=== PATIENT | female | born 1970 | race Caucasian/White ===

== ENCOUNTER 2016-06-26 19:41 | Emergency (ER) | payer MEDICAID ==
--- NOTE | 2016-06-26 19:52 | ER Document Report ---
ED Medical Screen (RME) - General Stated Complaint: CHEST PAIN Notes: 45 yo female c/o left sided chest pain x 45 min. radiation into back, numbness to left arm. pain is reproducable, aggrevated with movement. no nausea. no shortness of breath.
[2016-06-26 20:43] LABS: ABSOLUTE BASOPHILS # (AUTO) 0.1 10^3/uL (0.0-0.2); ABSOLUTE EOSINOPHILS # (AUTO) 0.5 10^3/uL (0.0-0.6); ABSOLUTE LYMPHOCYTES (AUTO) 3.5 10^3/uL (0.5-4.7); ABSOLUTE MONOCYTES (AUTO) 0.7 10^3/uL (0.1-1.4); ABSOLUTE NEUT (AUTO) 7.8 10^3/uL (1.7-8.2); BASOPHILS % (AUTO) 1.1 % (0-2); EOSINOPHILS % (AUTO) 3.8 % (0-6); HEMATOCRIT 43.5 % (36.0-47.0); HEMOGLOBIN 14.6 g/dL (12.0-15.5); HGB HCT DIFFERENCE 0.3; LYMPHOCYTES % (AUTO) 27.5 % (13-45); MEAN CORPUSCULAR HEMOGLOBIN 27.8 pg (27.0-33.4); MEAN CORPUSCULAR HGB CONC 33.5 g/dL (32.0-36.0); MEAN CORPUSCULAR VOLUME 83 fl (80-97); MONOCYTES % (AUTO) 5.3 % (3-13); RED BLOOD COUNT 5.24 10^6/uL (3.72-5.28); RED CELL DISTRIBUTION WIDTH 15.2 % (11.5-14.0); SEGMENTED NEUTROPHILS % (AUTO) 62.3 % (42-78); WHITE BLOOD COUNT 12.6 10^3/uL (4.0-10.5)
[2016-06-26 21:02] LABS: ALANINE AMINOTRANSFERASE 36 U/L (9-52); ALBUMIN 4.1 g/dL (3.5-5.0); ALKALINE PHOSPHATASE 89 U/L (38-126); ANION GAP 11 (5-19); ASPARTATE AMINO TRANSFERASE 23 U/L (14-36); BILIRUBIN,TOTAL 0.6 mg/dL (0.2-1.3); BLOOD UREA NITROGEN 16 mg/dL (7-20); CALCIUM 9.7 mg/dL (8.4-10.2); CARBON DIOXIDE 28 mmol/L (22-30); CHLORIDE 103 mmol/L (98-107); CREATINE KINASE 90 U/L (30-135); CREATININE RESULT 0.73 mg/dL (0.52-1.25); GLUCOSE 133 mg/dL (75-110); POTASSIUM 4.2 mmol/L (3.6-5.0); SODIUM 141.6 mmol/L (137-145)
[2016-06-26 21:17] LABS: CREATINE KINASE MB 0.58 ng/mL (<4.55); TROPONIN I < 0.012 ng/mL
--- NOTE | 2016-06-27 02:51 | ER Document Report ---
ED General - General Chief Complaint: Chest Pain Stated Complaint: CHEST PAIN Notes: Patient is a 45-year-old female with past medical history of chronic chest wall pain which she describes as a chronic chest arthritis who presents with the same pain. States that normally the pain does resolve spontaneously after 5 minutes but has been persistent for the last several hours which prompted her to come to the emergency department. Described as a dull, constant, throbbing pain that is worsened by applying pressure to the chest wall. Nothing improves the pain. States she normal takes gabapentin for this pain and has not had a for the past 1 month she recently moving to the area and not yet having a primary care physician. She denies any associated nausea, vomiting, diaphoresis or shortness of breath. Denies any history of DVT or pulmonary embolus. Does not use estrogen. States there is nothing new or different about this chest pain today relative past 5 years with the exception that has not resolve spontaneously. TRAVEL OUTSIDE OF THE [place] IN LAST 30 DAYS: No - Related Data Allergies/Adverse Reactions: morphine Allergy (Verified 06/26/16 19:54) Penicillins Allergy (Verified 06/26/16 19:54) Past Medical History - General Information source: Patient - Social History Smoking Status: Current Every Day Smoker Chew tobacco use (# tins/day): No Frequency of alcohol use: None Drug Abuse: None Lives with: Spouse/Significant other Family History: Reviewed & Not Pertinent Patient has suicidal ideation: No Patient has homicidal ideation: No Renal/ Medical History: Denies: Hx Peritoneal Dialysis - Immunizations Hx Diphtheria, Pertussis, Tetanus Vaccination: Yes Review of Systems - Review of Systems Notes: Constitutional: Negative for fever. HENT: Negative for sore throat. Eyes: Negative for visual changes. Cardiovascular: Positive for chest pain. Respiratory: Negative for shortness of breath. Gastrointestinal: Negative for abdominal pain, vomiting or diarrhea. Genitourinary: Negative for dysuria. Musculoskeletal: Negative for back pain. Skin: Negative for rash. Neurological: Negative for headaches, weakness or numbness. 10 point ROS negative except as marked above and in HPI. Physical Exam - Vital signs Vitals: Temp Pulse Resp BP Pulse Ox 98.0 F 85 16 130/70 H 99 06/26/16 19:49 06/26/16 19:49 06/26/16 19:49 06/26/16 19:49 06/26/16 19:49 Interpretation: Normal Notes: PHYSICAL EXAMINATION: GENERAL: Well-appearing, well-nourished and in no acute distress. HEAD: Atraumatic, normocephalic. EYES: Pupils equal round and reactive to light, extraocular movements intact, sclera anicteric, conjunctiva are normal. ENT: nares patent, oropharynx clear without exudates. Moist mucous membranes. NECK: Normal range of motion, supple without lymphadenopathy LUNGS: Breath sounds clear to auscultation bilaterally and equal. No wheezes rales or rhonchi. HEART: Regular rate and rhythm without murmurs Chest wall: Pain reproduced on palpation of the left central chest wall ABDOMEN: Soft, nontender, normoactive bowel sounds. No guarding, no rebound. No masses appreciated. EXTREMITIES: Normal range of motion, no pitting or edema. No cyanosis. NEUROLOGICAL: No focal neurological deficits. Moves all extremities spontaneously and on command. PSYCH: Normal mood, normal affect. SKIN: Warm, Dry, normal turgor, no rashes or lesions noted. Course - Re-evaluation Re-evalutation: 06/27/16 02:45 Presentation of chest pain in an otherwise well appearing patient. Patient states that she has had the pain for over 5 years, described as chronic chest wall pain. She normally takes gabapentin for this pain and has been out for the past one month and the pain has gotten worse since last time. Low clinical suspicion for ACS given clinical history, exam, EKG without ST elevations or depressions, and negative initial troponin. HEART score less than or equal to 3. PE also seems unlikely given clinical history, absence of tachycardia or dyspnea. Patient is PERC criteria negative. CXR without evidence of pneumothorax or pneumonia. No widened mediastinum. Aortic dissection also seems unlikely given history, symmetric pulses, CXR, and vitals. HEART Score: History:0 EC Age:1 Risk Factors:1 Troponin:0 Total: 2 Chest pain in a patient without evidence of cardiac or other serious etiology on workup today. I discussed with patient that, based on their age, risk factors and emergency department testing today, the likelihood that their symptoms are related to a heart attack is very low (estimated risk of heart attack or over the next 30 days of less than 1%). The patient demonstrates decision making capacity and has verbalized an understanding of these risks to me. Based on this, the patient has chosen to follow-up as an outpatient. Usual chest pain return precautions reviewed. The patient states understanding and agreement with this plan. - Vital Signs Vital signs: Temp Pulse Resp BP Pulse Ox 98.0 F 85 16 130/70 H 99 06/26/16 19:49 06/26/16 19:49 06/26/16 19:49 06/26/16 19:49 06/26/16 19:49 - Laboratory Result Diagrams: 06/26/16 20:15 06/26/16 20:15 Laboratory results interpreted by me: 06/26/16 06/26/16 20:15 20:15 WBC 12.6 H RDW 15.2 H Glucose 133 H - Diagnostic Test Radiology reviewed: Image reviewed, Reports reviewed Radiology results interpreted by me: 06/27/16 03:24 Chest x-ray: No acute infiltrate or pneumothorax - EKG Interpretation by Me Additional EKG results interpreted by me: 06/27/16 03:24 Normal sinus rhythm. Rate 84. No ST elevations or depressions. QTC is 488. Discharge - Discharge Clinical Impression: Chest wall discomfort Condition: Good Disposition: HOME, SELF-CARE Additional Instructions: You were seen today for chest pain. The exact cause of your pain is unclear. However, based on your cardiac enzyme testing, chest x-ray, and EKG it does not appear that it is from an immediately life-threatening cause at this time. Although your testing here is normal is critical that you follow-up with your primary care physician for continued evaluation of this chest pain and possible stress testing. I recommended you see your physician within the next 24-48 hours to be evaluated for consideration of a stress test. Please return to emergency department immediately if you have worsening of your chest pain, shortness of breath, vomiting, become unable to exert yourself due to pain or difficulty breathing, you pass out, or have any pain that radiates into your arms, jaw, or back. Please also return if you have any additional symptoms that are concerning to you. Prescriptions: Gabapentin [Neurontin] 600 mg PO TID #90 tablet
[2016-06-27] MEDS ORDERED: LIDOCAINE 5% (700 MG) TRANSDERMAL ADH..PATCH TP ONE (02:58)
[2016-06-27] MEDS ORDERED: GABAPENTIN 300 MG CAPSULE PO ONE (02:58)
[2016-06-27 03:28] VITALS: BP 116/63
--- NOTE | 2016-06-27 08:31 | EKG REPORT ---
SEVERITY:- BORDERLINE ECG - SINUS RHYTHM BORDERLINE PROLONGED QT INTERVAL NONSPECIFIC ST-T CHANGES- INFERIOR LEADS : Confirmed by: Cesar Marquez MD 27-Jun-2016 08:31:10
== END 2016-06-27 03:29 | disposition home or self-care (01) ==
LOC: ER 19:41
DX: R07.89 Other chest pain (principal); G89.29 Other chronic pain; F17.210 Nicotine dependence, cigarettes, uncomplicated
CPT/HCPCS: 93005; 99285; 36415; 82553; 82550; 85025; 80053; 84484; 71020; 93010; J3490 ×2

== ENCOUNTER 2016-08-20 11:02 | Emergency (ER) | payer MEDICAID ==
--- NOTE | 2016-08-20 11:39 | ER Document Report ---
ED General - General Chief Complaint: Suicidal Ideation Stated Complaint: SUICIDAL IDEATION Mode of Arrival: Ambulatory Information source: Patient, Outside Facility Records Notes: 45-year-old female history of depression on duloxetine presents with a history of suicide attempt 15 years ago presents today with suicidal ideations. Patient has a history of cutting herself, notes she was caught cheating yesterday, thought of hurting herself today. Patient called for help and was brought to the emergency department patient did not actually harm herself TRAVEL OUTSIDE OF THE [place] IN LAST 30 DAYS: No - HPI Onset: Just prior to arrival Onset/Duration: Sudden Quality of pain: No pain Severity: Mild Pain Level: Denies Exacerbated by: Denies Relieved by: Denies Similar symptoms previously: Yes Recently seen / treated by doctor: Yes - Related Data Allergies/Adverse Reactions: morphine Allergy (Verified 08/20/16 11:10) Penicillins Allergy (Verified 08/20/16 11:10) Past Medical History - Social History Smoking Status: Current Every Day Smoker Cigarette use (# per day): Yes Chew tobacco use (# tins/day): No Smoking Education Provided: No Family History: Reviewed & Not Pertinent Patient has suicidal ideation: Yes Patient has homicidal ideation: No Renal/ Medical History: Denies: Hx Peritoneal Dialysis - Immunizations Hx Diphtheria, Pertussis, Tetanus Vaccination: Yes Review of Systems - Review of Systems Notes: REVIEW OF SYSTEMS: CONSTITUTIONAL : Denies fever, chills, or sweats. Denies recent illness. EENT: Denies eye, ear, throat, or mouth pain or symptoms. Denies nasal or sinus congestion or discharge. Denies throat, tongue, or mouth swelling or difficulty swallowing. CARDIOVASCULAR: Denies chest pain. Denies palpitations or racing or irregular heart beat. Denies ankle edema. RESPIRATORY: Denies cough, cold, or chest congestion. Denies shortness of breath, difficulty breathing, or wheezing. GASTROINTESTINAL: Denies abdominal pain or distention. Denies nausea, vomiting , or diarrhea. Denies blood in vomitus, stools, or per rectum. Denies black, tarry stools. Denies constipation. GENITOURINARY: Denies difficulty urinating, painful urination, burning, frequency, blood in urine, or discharge. FEMALE GENITOURINARY: Denies vaginal bleeding, heavy or abnormal periods, irregular periods. Denies vaginal discharge or odor. MUSCULOSKELETAL: Denies back or neck pain or stiffness. Denies joint pain or swelling. SKIN: Denies rash, lesions or sores. HEMATOLOGIC : Denies easy bruising or bleeding. LYMPHATIC: Denies swollen, enlarged glands. NEUROLOGICAL: Denies confusion or altered mental status. Denies passing out or loss of consciousness. Denies dizziness or lightheadedness. Denies headache. Denies weakness or paralysis or loss of use of either side. Denies problems with gait or speech. Denies sensory loss, numbness, or tingling. Denies seizures. PSYCHIATRIC: Admits to depression suicidal ideation ALL OTHER SYSTEMS REVIEWED AND NEGATIVE. Dictation was performed using [employer] voice recognition software PHYSICAL EXAMINATION: GENERAL: Well-appearing, well-nourished and in no acute distress. HEAD: Atraumatic, normocephalic. EYES: Pupils equal round and reactive to light, extraocular movements intact, conjunctiva are normal. ENT: Nares patent, oropharynx clear without exudates. Moist mucous membranes. NECK: Normal range of motion, supple without lymphadenopathy LUNGS: Breath sounds clear to auscultation bilaterally and equal. No wheezes rales or rhonchi. HEART: Regular rate and rhythm without murmurs ABDOMEN: Soft, nontender, nondistended abdomen. No guarding, no rebound. No masses appreciated. Female : deferred Musculoskeletal: Normal range of motion, no pitting or edema. No cyanosis. NEUROLOGICAL: Cranial nerves grossly intact. Normal speech, normal gait. Normal sensory, motor exams PSYCH: Depressed SKIN: Warm, Dry, normal turgor, no rashes or lesions noted. Physical Exam - Vital signs Vitals: Temp Pulse Resp BP Pulse Ox 98.4 F 80 20 140/76 H 96 08/20/16 11:12 08/20/16 11:12 08/20/16 11:12 08/20/16 11:12 08/20/16 11:12 Course - Re-evaluation Re-evalutation: 08/20/16 11:39 This is a 45-year-old female who is under a recent stressor, patient did not actually harm himself and medically is otherwise stable. She will require mental health evaluation - Vital Signs Vital signs: Temp Pulse Resp BP Pulse Ox 98.4 F 80 20 140/76 H 96 08/20/16 11:12 08/20/16 11:12 08/20/16 11:12 08/20/16 11:12 08/20/16 11:12 - EKG Interpretation by Me EKG shows normal: Sinus rhythm, Mackay, Intervals, QRS Complexes Discharge - Discharge Clinical Impression: Suicidal ideation Depression Qualifiers: Depression Type: unspecified Qualified Code(s): F32.9 - Major depressive disorder, single episode, unspecified Condition: Stable Disposition: PSYCH HOSP/UNIT
[2016-08-20 11:50] LABS: APPEARANCE,URINE CLEAR; BILIRUBIN,URINE NEGATIVE (NEGATIVE); GLUCOSE, URINE NEGATIVE (NEGATIVE); KETONES,URINE NEGATIVE (NEGATIVE); LEUKOCYTE ESTERASE,URINE NEGATIVE (NEGATIVE); NITRITE,URINE NEGATIVE (NEGATIVE); PROTEIN,URINE 30 mg/dL (NEGATIVE); URINE SPECIFIC GRAVITY 1.011; UROBILINOGEN,URINE NEGATIVE mg/dL (<2.0)
[2016-08-20 11:54] LABS: ABSOLUTE BASOPHILS # (AUTO) 0.1 10^3/uL (0.0-0.2); ABSOLUTE EOSINOPHILS # (AUTO) 0.5 10^3/uL (0.0-0.6); ABSOLUTE LYMPHOCYTES (AUTO) 2.4 10^3/uL (0.5-4.7); ABSOLUTE MONOCYTES (AUTO) 0.7 10^3/uL (0.1-1.4); ABSOLUTE NEUT (AUTO) 7.5 10^3/uL (1.7-8.2); BASOPHILS % (AUTO) 1.1 % (0-2); EOSINOPHILS % (AUTO) 4.4 % (0-6); HEMATOCRIT 41.9 % (36.0-47.0); HEMOGLOBIN 14.4 g/dL (12.0-15.5); HGB HCT DIFFERENCE 1.3; LYMPHOCYTES % (AUTO) 21.1 % (13-45); MEAN CORPUSCULAR HEMOGLOBIN 28.3 pg (27.0-33.4); MEAN CORPUSCULAR HGB CONC 34.3 g/dL (32.0-36.0); MEAN CORPUSCULAR VOLUME 83 fl (80-97); MONOCYTES % (AUTO) 6.1 % (3-13); RED BLOOD COUNT 5.08 10^6/uL (3.72-5.28); RED CELL DISTRIBUTION WIDTH 15.1 % (11.5-14.0); SEGMENTED NEUTROPHILS % (AUTO) 67.3 % (42-78); WHITE BLOOD COUNT 11.2 10^3/uL (4.0-10.5)
[2016-08-20 12:06] LABS: URINE BARBITURATES SCREEN NEGATIVE; URINE METHADONE SCREEN NEGATIVE; URINE OPIATES LOW NEGATIVE; URINE PHENCYCLIDINE SCREEN NEGATIVE
[2016-08-20 12:17] LABS: ALANINE AMINOTRANSFERASE 51 U/L (9-52); ALBUMIN 4.1 g/dL (3.5-5.0); ALKALINE PHOSPHATASE 83 U/L (38-126); ANION GAP 12 (5-19); ASPARTATE AMINO TRANSFERASE 28 U/L (14-36); BILIRUBIN,DIRECT 0.2 mg/dL (0.0-0.4); BILIRUBIN,TOTAL 0.5 mg/dL (0.2-1.3); BLOOD UREA NITROGEN 14 mg/dL (7-20); CALCIUM 9.3 mg/dL (8.4-10.2); CARBON DIOXIDE 26 mmol/L (22-30); CHLORIDE 105 mmol/L (98-107); CREATININE RESULT 0.72 mg/dL (0.52-1.25); GLUCOSE 110 mg/dL (75-110); POTASSIUM 4.2 mmol/L (3.6-5.0); SODIUM 143.4 mmol/L (137-145); TOTAL PROTEIN 6.7 g/dL (6.3-8.2)
[2016-08-20 12:18] LABS: ALCOHOL < 10 mg/dL (NONE DETECTED)
--- NOTE | 2016-08-20 17:31 | ER Document Report ---
ED Psych Disorder / Suicide - General Chief Complaint: Suicidal Ideation Stated Complaint: SUICIDAL IDEATION Mode of Arrival: Ambulatory Information source: Patient, Relative, [facility] Records, Outside Facility Records - Mobile Crisis TRAVEL OUTSIDE OF THE [place] IN LAST 30 DAYS: No - HPI Patient complains to provider of: Suicidal ideation, Suicidal plan - plan to use knives to stab herself Onset: Just prior to arrival Onset was: Sudden Suicide Risk Factors: Bipolar - R/O, Depressed, Lack of social support, Organized plan Situational problems related to: Spouse - caught cheating yesterday. States she has had affairs for 20 years Normal mood: No Associated symptoms: Depressed, Tearful Similar symptoms previously: Yes - 15 years ago Recently seen / treated by doctor: Yes - Shahida Do Notes: Patient is a 45-year-old female who presents voluntarily seeking assistance for depressive symptoms and acute onset of suicidal ideations with plan to utilize knives in the kitchen to commit suicide. Patient today is sad with tearful affect and states yesterday her caught her cheating after finding text messages on her phone. Patient reports she has cheated throughout the entirety of their marriage 20+ years. Patient reports she has been caught before. She states they and she had a suicidal episode at that time as well. Note this also involved holding a knife to her throat for which she was evaluated and from what the patient can recall, discharged. Patient reports this morning her had left the house temporarily and she was putting away dishes and saw the knives. She started thinking about how she didn't did not want to deal with the situation and also was not sure she still wanted to live. Patient reports she called "the helpline" ([employer]) who presented to her home to assess her. Patient reports [employer] contacted her and had him return at which time they discussed the states of their marriage and current situation. Patient reports what set her off when she was putting with a dishes when she feared she was going to lose everyone, meaning her children and and home. Patient states during discussion with [employer] her disclosed that he would not leave her. Patient talks of her marriage, and states he is not a talker, and her daughter is either on her tablet or belittling her. She states she does not feel her is supportive of her depression. She reports her will just tell her to "snap out of it." She has 2 other adult children one who lives in [place] and the other who lives in [place]. Patient reports she sees Shahida Do at the [facility] and is prescribed duloxetine. She states she is not sure that it is helping. She could not recall the length of time she has been prescribed this medication. Patient reports depression and bipolar disorder due to run in her family, to include her mother who is diagnosed with bipolar disorder. Patient's did speak with mental health outpatient case manager CAREY, and states he has no concerns for the patient to return home and feel she is safe to do so. States he will encourage her to follow-up with her provider. Patient is alert and oriented. Mood is anxious and depressed with extremely tearful affect. Patient endorsed suicidal ideations with possible plan and means, but was not 100% committed to dying by suicide when asked. Patient denies homicidal ideations, intent, plan, means. Patient denies A/VH; delusions not noted. Thought processes were organized. Conversational speech was low for prosody. Intellectual abilities were estimated within average range. Attention and focus were fair. Insight, judgment, impulse control were poor. Unspecified depressive disorder Rule out bipolar disorder Patient is psychiatrically cleared and recommended for discharge. Encourage patient to engage in counseling to assist her with coping skills. Additionally encourage patient to follow up with her provider to discuss medication management and adjustments. Did to reevaluate patient later in the day at which time she was calm and collected. Patient denied any thoughts of wanting to harm herself. Patient states she feels safe and would like to go home and work things out with her . Patient is able to contact the mobile crisis provider who brought her here earlier today. I consulted with Dr. Lino in regards to the care and management of this patient. - Related Data Allergies/Adverse Reactions: morphine Allergy (Verified 08/20/16 11:10) Penicillins Allergy (Verified 08/20/16 11:10) Home Medications: Current Home Medications Duloxetine HCl [Duloxetine HCl] 60 mg PO DAILY 08/20/16 [History] Fluticasone/Salmeterol [Advair 250-50 Diskus 28 dose] 1 inhaler PO DAILY [History] Gabapentin [Neurontin] 300 mg PO TID 08/20/16 [History] Levothyroxine Sodium 1 mcg PO DAILY 08/20/16 [History] Meloxicam 15 mg PO DAILY 08/20/16 [History] Metformin HCl 500 mg PO ACHS 08/20/16 [History] Montelukast Sodium [Singulair] 10 mg PO DAILY 08/20/16 [History] Multivitamin [Multivitamins] 1 tab PO DAILY 08/20/16 [History] Pantoprazole Sodium [Protonix] 40 mg PO DAILY 08/20/16 [History] Phentermine HCl 37.5 mg PO DAILY 08/20/16 [History] Past Medical History - General Information source: Patient, Outside Facility Records - Social History Smoking Status: Current Every Day Smoker Cigarette use (# per day): Yes Chew tobacco use (# tins/day): No Frequency of alcohol use: Rare Drug Abuse: Marijuana Family History: Reviewed & Not Pertinent Patient has suicidal ideation: Yes Patient has homicidal ideation: No Renal/ Medical History: Denies: Hx Peritoneal Dialysis - Immunizations Hx Diphtheria, Pertussis, Tetanus Vaccination: Yes Physical Exam - Vital signs Vitals: Temp Pulse Resp BP Pulse Ox 98.4 F 80 20 140/76 H 96 08/20/16 11:12 08/20/16 11:12 08/20/16 11:12 08/20/16 11:12 08/20/16 11:12 Course - Vital Signs Vital signs: Temp Pulse Resp BP Pulse Ox 98.4 F 80 20 140/76 H 96 08/20/16 11:12 08/20/16 11:12 08/20/16 11:12 08/20/16 11:12 08/20/16 11:12 - Laboratory Result Diagrams: 08/20/16 11:40 08/20/16 11:40 Laboratory results interpreted by me: 08/20/16 08/20/16 08/20/16 11:32 11:40 11:40 WBC 11.2 H RDW 15.1 H Urine Protein 30 H Salicylates < 1.0 L Acetaminophen < 10 L Discharge - Discharge Clinical Impression: Suicidal ideation Depression Qualifiers: Depression Type: unspecified Qualified Code(s): F32.9 - Major depressive disorder, single episode, unspecified Condition: Stable Disposition: PSYCH HOSP/UNIT Additional Instructions: Depression Your evaluation reveals that you have mental depression. While symptoms may be vague, they often include disturbance of sleep, fatigue, loss of appetite , and general loss of interest in life. While depression may be a side effect of drugs, or a reaction to a major change in your life, many cases have no known cause. If depression is acute, and related to a major loss in your life, you can expect it to clear completely with time. If you have been depressed a long time , are prone to repeated bouts of depression or low mood, or have been thinking of suicide, get help. Depression can be treated with anti-depressant medication and counselling. Long-term depression will often take a few weeks to clear, even with appropriate medication. Follow-up care is important. Contact your physician, the hospital emergency center, crisis line, or your counsellor if you are losing control or having self-destructive thoughts. Suicidal Ideation Suicidal ideation is a common medical term for thoughts about suicide, which may be as detailed as a formulated plan, without the suicidal act itself. Although most people who undergo suicidal ideation do not commit suicide, some go on to make suicide attempts. The range of suicidal ideation varies greatly from fleeting to detailed planning, role playing, and unsuccessful attempts. The care provider as discussed. Please identify and utilize alternative coping skills to assist you with daily stressors and managing your depression. He have been provided a list of resources to do so, to also include contact information for mobile crisis. Please return to the ED if your symptoms worsen
[2016-08-20 17:56] VITALS: BP 126/73
--- NOTE | 2016-08-20 22:20 | EKG REPORT ---
SEVERITY:- ABNORMAL ECG - SINUS RHYTHM PROBABLE LEFT ATRIAL ABNORMALITY PROBABLE INFERIOR INFARCT, AGE INDETERMINATE : Confirmed by: Dagoberto Alaniz 20-Aug-2016 22:19:05
== END 2016-08-20 18:29 ==
LOC: ER 11:02
DX: F32.9 Major depressive disorder, single episode, unspecified (principal); R45.851 Suicidal ideations; F41.9 Anxiety disorder, unspecified; F17.210 Nicotine dependence, cigarettes, uncomplicated; Z63.0 Problems in relationship with spouse or partner; Z79.899 Other long term (current) drug therapy; Z81.8 Family history of other mental and behavioral disorders; Z88.5 Allergy status to narcotic agent; Z88.0 Allergy status to penicillin; Z91.5 Personal history of self-harm
CPT/HCPCS: 36415; 80053; 80307; 81001; 84703; 85025; 93005; 93010; 99285

== ENCOUNTER 2016-09-16 12:52 | Emergency (ER) | payer MEDICAID, OTHER ==
[2016-09-16] MEDS ORDERED: HYDROCODONE/ACETAMINOPHEN 5-325 MG TABLET PO ONE (13:58)
[2016-09-16] MEDS ORDERED: IBUPROFEN 600 MG TABLET PO ONE (13:58)
--- NOTE | 2016-09-16 14:03 | ER Document Report ---
ED Extremity Problem, Lower - General Chief Complaint: Leg Swelling Stated Complaint: LEG SWELLING Time Seen by Provider: 09/16/16 13:58 Notes: Patient is a 45-year-old female, past medical history sciatica, chronic back pain, anxiety, presents with 1 week of bilateral leg swelling since leaving the psychiatric hospital. It has worsened over the past 2 days. When she elevates the legs, the swelling goes down. She denies injury, numbness, tingling, shortness of breath, cough, fevers or chest pain TRAVEL OUTSIDE OF THE [place] IN LAST 30 DAYS: No - Related Data Allergies/Adverse Reactions: morphine Allergy (Verified 09/16/16 13:38) Penicillins Allergy (Verified 09/16/16 13:38) Past Medical History - General Information source: Patient - Social History Smoking Status: Current Every Day Smoker Chew tobacco use (# tins/day): No Frequency of alcohol use: None Drug Abuse: None Family History: Reviewed & Not Pertinent Patient has suicidal ideation: No Patient has homicidal ideation: No Renal/ Medical History: Denies: Hx Peritoneal Dialysis Past Surgical History: Reports: Hx Section - Immunizations Hx Diphtheria, Pertussis, Tetanus Vaccination: Yes Review of Systems - Review of Systems Notes: REVIEW OF SYSTEMS: CONSTITUTIONAL: -fevers, -chills EENT: -eye pain, -difficulty swallowing, -nasal congestion CARDIOVASCULAR:-chest pain, -syncope. RESPIRATORY: -cough, -SOB GASTROINTESTINAL: -abdominal pain, -nausea, -vomiting, -diarrhea GENITOURINARY: -dysuria, -hematuria MUSCULOSKELETAL: +B/L leg swelling, -back pain, -neck pain SKIN: -rash or skin lesions. HEMATOLOGIC: -easy bruising or bleeding. LYMPHATIC: -swollen, enlarged glands. NEUROLOGICAL: -altered mental status or loss of consciousness, -headache, - neurologic symptoms PSYCHIATRIC: -anxiety, -depression. ALL OTHER SYSTEMS REVIEWED AND NEGATIVE. Physical Exam - Vital signs Vitals: Temp Pulse Resp BP Pulse Ox 98.3 F 97 20 145/85 H 95 09/16/16 13:41 09/16/16 13:41 09/16/16 13:41 09/16/16 13:41 09/16/16 13:41 - Notes Notes: PHYSICAL EXAMINATION: GENERAL: Well-appearing, well-nourished and in no acute distress. HEAD: Atraumatic, normocephalic. EYES: Pupils equal round and reactive to light, extraocular movements intact, sclera anicteric, conjunctiva are normal. ENT: nares patent, oropharynx clear without exudates. Moist mucous membranes. NECK: Normal range of motion, supple without lymphadenopathy LUNGS: Breath sounds clear to auscultation bilaterally and equal. No wheezes rales or rhonchi. HEART: Regular rate and rhythm without murmurs ABDOMEN: Soft, nontender, normoactive bowel sounds. No guarding, no rebound. No masses appreciated. EXTREMITIES: B/L lower extremity swelling with 2+ edema up to knees and calf tenderness, strong pulses, normal range of motion. No cyanosis. NEUROLOGICAL: Cranial nerves grossly intact. Normal speech, normal gait. Normal sensory and motor exams. PSYCH: Normal mood, normal affect. SKIN: Warm, Dry, normal turgor, no rashes or lesions noted. Course - Re-evaluation Re-evalutation: DVT US and labs are unremarkable. Patient with dependent edema. Provided patient with compression stockings and will have her f/u with her PMD. - Vital Signs Vital signs: Temp Pulse Resp BP Pulse Ox 98.3 F 97 20 116/76 95 09/16/16 13:41 09/16/16 13:41 09/16/16 13:41 09/16/16 17:15 09/16/16 13:41 - Laboratory Result Diagrams: 09/16/16 15:50 09/16/16 15:50 Laboratory results interpreted by me: 09/16/16 09/16/16 15:50 15:50 RDW 14.7 H Glucose 216 H ALT 58 H - Diagnostic Test Radiology reviewed: Image reviewed, Reports reviewed Radiology results interpreted by me: DVT US: No DVT or SVT. Discharge - Discharge Clinical Impression: Bilateral leg edema Condition: Stable Disposition: HOME, SELF-CARE Additional Instructions: Edema, Peripheral You have swelling in your legs. This is called peripheral edema. It can be caused by "leaky capillaries," inflammation, disease of the leg veins, or excess salt and water in your body. Edema may be a sign of heart, kidney, or liver disease. A medical evaluation can determine if there is a serious underlying cause for your edema. Avoid prolonged standing. If you must sit for a long time, occasionally get up and walk around or elevate your legs. Support stockings can be helpful in limiting swelling. Often diuretic or water pills are used to remove excess salt and water from your body. Call the doctor or return if you develop increased swelling, pain, or redness, shortness of breath, chest pain, or any other significant change. Forms: Elevated Blood Pressure
[2016-09-16 16:03] LABS: ABSOLUTE BASOPHILS # (AUTO) 0.2 10^3/uL (0.0-0.2); ABSOLUTE EOSINOPHILS # (AUTO) 0.5 10^3/uL (0.0-0.6); ABSOLUTE LYMPHOCYTES (AUTO) 2.9 10^3/uL (0.5-4.7); ABSOLUTE MONOCYTES (AUTO) 0.6 10^3/uL (0.1-1.4); ABSOLUTE NEUT (AUTO) 6.1 10^3/uL (1.7-8.2); BASOPHILS % (AUTO) 1.5 % (0-2); EOSINOPHILS % (AUTO) 4.6 % (0-6); HEMATOCRIT 43.3 % (36.0-47.0); HEMOGLOBIN 14.4 g/dL (12.0-15.5); HGB HCT DIFFERENCE -0.1; LYMPHOCYTES % (AUTO) 28.5 % (13-45); MEAN CORPUSCULAR HEMOGLOBIN 27.7 pg (27.0-33.4); MEAN CORPUSCULAR HGB CONC 33.3 g/dL (32.0-36.0); MEAN CORPUSCULAR VOLUME 83 fl (80-97); MONOCYTES % (AUTO) 5.6 % (3-13); RED CELL DISTRIBUTION WIDTH 14.7 % (11.5-14.0); SEGMENTED NEUTROPHILS % (AUTO) 59.8 % (42-78); WHITE BLOOD COUNT 10.3 10^3/uL (4.0-10.5)
--- NOTE | 2016-09-16 16:18 | RADIOLOGY REPORT (SQ) ---
EXAM DESCRIPTION: VENOUS BILATERAL LOWER COMPLETED DATE/TIME: 09/16/2016 4:06 pm REASON FOR STUDY: B/L leg swelling after hospitalization COMPARISON: None. TECHNIQUE: Dynamic and static waldron scale and color images acquired of both lower extremity venous sy stems. Selected spectral images acquired with additional compression and augmentation maneuvers. Imag es stored on PACS. LIMITATIONS: The study is limited secondary to body habitus. FINDINGS: RIGHT LEG COMMON FEMORAL AND FEMORAL: Normal phasicity, compression and augmentation. No visualized echogenic m aterial on waldron scale. No defects on color images. POPLITEAL: Normal compression and augmentation. No visualized echogenic material on waldron scale. No de fects on color images. CALF VESSELS: Visualize infrapopliteal vessels are patent. GSV AND SSV: Normal compression. No visualized echogenic material on waldron scale. No defects on color images. ANY DEEP VENOUS INSUFFICIENCY: Not evaluated. ANY EVIDENCE OF POPLITEAL CYST: No. OTHER: No other significant finding. LEFT LEG COMMON FEMORAL AND FEMORAL: Normal phasicity, compression and augmentation. No visualized echogenic m aterial on waldron scale. No defects on color images. POPLITEAL: Normal compression and augmentation. No visualized echogenic material on waldron scale. No de fects on color images. CALF VESSELS: Normal compression and augmentation. No visualized echogenic material on waldron scale. No defects on color images. GSV AND SSV: Normal compression. No visualized echogenic material on waldron scale. No defects on color images. ANY DEEP VENOUS INSUFFICIENCY: Not evaluated. ANY EVIDENCE POPLITEAL CYST: No. OTHER: No other significant finding. IMPRESSION: NO EVIDENCE DVT OR SVT IN EITHER LEG. TECHNICAL DOCUMENTATION: JOB ID: [id number] [email or web address]- All Rights Reserved
[2016-09-16 16:26] LABS: ALANINE AMINOTRANSFERASE 58 U/L (9-52); ALBUMIN 3.8 g/dL (3.5-5.0); ALKALINE PHOSPHATASE 81 U/L (38-126); ANION GAP 11 (5-19); ASPARTATE AMINO TRANSFERASE 32 U/L (14-36); BILIRUBIN,DIRECT 0.3 mg/dL (0.0-0.4); BILIRUBIN,TOTAL 0.4 mg/dL (0.2-1.3); BLOOD UREA NITROGEN 13 mg/dL (7-20); CALCIUM 9.1 mg/dL (8.4-10.2); CARBON DIOXIDE 28 mmol/L (22-30); CHLORIDE 103 mmol/L (98-107); CREATINE KINASE 65 U/L (30-135); CREATININE RESULT 0.67 mg/dL (0.52-1.25); GLUCOSE 216 mg/dL (75-110); POTASSIUM 4.5 mmol/L (3.6-5.0); SODIUM 141.5 mmol/L (137-145); TOTAL PROTEIN 6.5 g/dL (6.3-8.2)
[2016-09-16 17:25] VITALS: BP 116/76
== END 2016-09-16 17:25 | disposition home or self-care (01) ==
LOC: ER 12:52
DX: R60.9 Edema, unspecified (principal); F17.200 Nicotine dependence, unspecified, uncomplicated; Z88.6 Allergy status to analgesic agent; Z88.0 Allergy status to penicillin
CPT/HCPCS: 99284; 36415; 82550; 85025; 80053; 83880; 93970; J3490

== ENCOUNTER 2016-09-20 10:40 | Emergency (ER) | payer MEDICAID ==
[2016-09-20] MEDS ORDERED: DIPH/PERTUSS(ACELL)/TETANUS VAC/PF 0.5 ML SYR (>=10YO) IM ONE (11:17)
--- NOTE | 2016-09-20 11:18 | ER Document Report ---
ED Psych Disorder / Suicide - General Chief Complaint: Psych Problem Stated Complaint: IVC Time Seen by Provider: 09/20/16 10:56 Mode of Arrival: Ambulatory Information source: Patient TRAVEL OUTSIDE OF THE [place] IN LAST 30 DAYS: No - HPI Patient complains to provider of: Suicidal ideation, Self injury Onset: This morning Onset was: Cannot confirm Quality of pain: Achy Severity: Mild Suicide Risk Factors: Depressed, Lack of social support Situational problems related to: Significant other Suicide Attempt Method: Stabbing/Cutting Injury to: Thigh, Wrist Normal mood: No Associated symptoms: Depressed, Tearful Similar symptoms previously: Yes Recently seen / treated by doctor: Yes Notes: Patient is a 45-year-old female with a history of depression, who presents to the emergency room complaining of depression with suicidal ideation and recent superficial cutting to her left wrist and right thigh, she reports that it was the recent anniversary of her mother's and her significant other told her yesterday that he would like a divorce, patient is tearful, she admits that she wants to kill herself, she denies medication noncompliance, reports that she was recently hospitalized for mental illness as well - Related Data Allergies/Adverse Reactions: morphine Allergy (Verified 09/16/16 13:38) Penicillins Allergy (Verified 09/16/16 13:38) Past Medical History - General Information source: Patient - Social History Smoking Status: Unknown if Ever Smoked Family History: Reviewed & Not Pertinent Patient has suicidal ideation: Yes Patient has homicidal ideation: No Renal/ Medical History: Denies: Hx Peritoneal Dialysis Past Surgical History: Reports: Hx Section - Immunizations Hx Diphtheria, Pertussis, Tetanus Vaccination: Yes Review of Systems - Review of Systems Constitutional: No symptoms reported EENT: No symptoms reported Cardiovascular: No symptoms reported Respiratory: No symptoms reported Gastrointestinal: No symptoms reported Genitourinary: No symptoms reported Female Genitourinary: No symptoms reported Musculoskeletal: No symptoms reported Skin: See HPI Hematologic/Lymphatic: No symptoms reported Neurological/Psychological: See HPI -: Yes All other systems reviewed and negative Physical Exam - Vital signs Vitals: Temp Pulse Resp BP Pulse Ox 98.4 F 106 H 18 155/86 H 94 09/20/16 10:54 09/20/16 10:54 09/20/16 10:54 09/20/16 10:54 09/20/16 10:54 Interpretation: Hypertensive, Tachycardic - General General appearance: Appears well, Alert - HEENT Head: Normocephalic, Atraumatic Eyes: Normal Pupils: PERRL - Respiratory Respiratory status: No respiratory distress Chest status: Nontender Breath sounds: Normal Chest palpation: Normal - Cardiovascular Rhythm: Regular Heart sounds: Normal auscultation Murmur: No - Abdominal Inspection: Normal, Obese Distension: No distension Bowel sounds: Normal Tenderness: Nontender Organomegaly: No organomegaly - Back Back: Normal, Nontender - Extremities General upper extremity: Normal color, Normal ROM, Normal temperature General lower extremity: Normal color, Normal ROM, Normal temperature, Normal weight bearing. No: Cruz's sign Wrist: Other - No superficial scratches to left wrist, no active bleeding, distal sensation and motor is intact with 2+ radial pulse Thigh: Other - Superficial scratches to the anterior surface of the left upper thigh, no active bleeding, distal sensation and motor is intact - Neurological Neuro grossly intact: Yes Cognition: Normal Orientation: AAOx4 Melania Coma Scale Eye Opening: Spontaneous [place] Coma Scale Verbal: Oriented Melania Coma Scale Motor: Obeys Commands Melania Coma Scale Total: 15 Speech: Normal Motor strength normal: LUE, RUE, LLE, RLE Sensory: Normal - Psychological Associated symptoms: Depressed, Flat affect, Tearful - Skin Skin Temperature: Warm Skin Moisture: Dry Skin Color: Normal Course - Vital Signs Vital signs: Temp Pulse Resp BP Pulse Ox 98.4 F 106 H 18 155/86 H 94 09/20/16 10:54 09/20/16 10:54 09/20/16 10:54 09/20/16 10:54 09/20/16 10:54 - Laboratory Result Diagrams: 09/20/16 12:10 09/20/16 12:10 Laboratory results interpreted by me: 09/20/16 09/20/16 09/20/16 12:10 12:10 12:10 WBC 11.3 H RDW 14.9 H Glucose 223 H AST 47 H ALT 75 H Urine Protein 30 H Urine Glucose (UA) 150 H Salicylates < 1.0 L Acetaminophen < 10 L - EKG Interpretation by Md EKG shows normal: Sinus rhythm Rate: Normal Rhythm: NSR Discharge - Discharge Clinical Impression: Suicidal ideation, Self-injurious behavior Condition: Stable Disposition: PSYCH HOSP/UNIT
[2016-09-20 12:37] LABS: ABSOLUTE BASOPHILS # (AUTO) 0.1 10^3/uL (0.0-0.2); ABSOLUTE EOSINOPHILS # (AUTO) 0.4 10^3/uL (0.0-0.6); ABSOLUTE LYMPHOCYTES (AUTO) 2.5 10^3/uL (0.5-4.7); ABSOLUTE MONOCYTES (AUTO) 0.6 10^3/uL (0.1-1.4); ABSOLUTE NEUT (AUTO) 7.7 10^3/uL (1.7-8.2); EOSINOPHILS % (AUTO) 3.5 % (0-6); HEMATOCRIT 41.6 % (36.0-47.0); HEMOGLOBIN 14.1 g/dL (12.0-15.5); HGB HCT DIFFERENCE 0.7; MEAN CORPUSCULAR HEMOGLOBIN 28.4 pg (27.0-33.4); MEAN CORPUSCULAR VOLUME 84 fl (80-97); MONOCYTES % (AUTO) 5.2 % (3-13); RED BLOOD COUNT 4.97 10^6/uL (3.72-5.28); RED CELL DISTRIBUTION WIDTH 14.9 % (11.5-14.0); SEGMENTED NEUTROPHILS % (AUTO) 68.3 % (42-78); WHITE BLOOD COUNT 11.3 10^3/uL (4.0-10.5)
[2016-09-20 12:57] LABS: ALANINE AMINOTRANSFERASE 75 U/L (9-52); ALBUMIN 3.7 g/dL (3.5-5.0); ALKALINE PHOSPHATASE 79 U/L (38-126); ANION GAP 12 (5-19); ASPARTATE AMINO TRANSFERASE 47 U/L (14-36); BILIRUBIN,DIRECT 0.3 mg/dL (0.0-0.4); BILIRUBIN,TOTAL 0.4 mg/dL (0.2-1.3); BLOOD UREA NITROGEN 16 mg/dL (7-20); CALCIUM 9.2 mg/dL (8.4-10.2); CARBON DIOXIDE 26 mmol/L (22-30); CHLORIDE 102 mmol/L (98-107); CREATININE RESULT 0.67 mg/dL (0.52-1.25); GLUCOSE 223 mg/dL (75-110); POTASSIUM 4.4 mmol/L (3.6-5.0); SODIUM 140.3 mmol/L (137-145); TOTAL PROTEIN 6.5 g/dL (6.3-8.2)
[2016-09-20 12:58] LABS: ALCOHOL < 10 mg/dL (NONE DETECTED)
[2016-09-20 13:00] LABS: APPEARANCE,URINE SLIGHTLY-CLOUDY; BILIRUBIN,URINE NEGATIVE (NEGATIVE); GLUCOSE, URINE 150 mg/dL (NEGATIVE); KETONES,URINE NEGATIVE (NEGATIVE); LEUKOCYTE ESTERASE,URINE NEGATIVE (NEGATIVE); NITRITE,URINE NEGATIVE (NEGATIVE); PROTEIN,URINE 30 mg/dL (NEGATIVE); URINE SPECIFIC GRAVITY 1.026; UROBILINOGEN,URINE NEGATIVE mg/dL (<2.0)
[2016-09-20 13:06] LABS: URINE BARBITURATES SCREEN NEGATIVE; URINE METHADONE SCREEN NEGATIVE; URINE OPIATES LOW NEGATIVE; URINE PHENCYCLIDINE SCREEN NEGATIVE
--- NOTE | 2016-09-20 20:39 | EKG REPORT ---
SEVERITY:- ABNORMAL ECG - SINUS RHYTHM PROBABLE LEFT ATRIAL ABNORMALITY PROBABLE INFERIOR INFARCT, AGE INDETERMINATE : Confirmed by: Cesar Marquez MD 20-Sep-2016 20:38:49
[2016-09-20] MEDS ORDERED: ALBUTEROL SULFATE HFA (90 MCG/PUFF) 200 PUFF/8.5 GM MDI IH PRN (21:09)
[2016-09-20] MEDS ORDERED: HYDROXYZINE PAMOATE 50 MG CAPSULE PO PRN (21:09)
[2016-09-20] MEDS ORDERED: TRAZODONE HCL 50 MG TABLET PO PRN (21:09)
[2016-09-20] MEDS ORDERED: DOXAZOSIN MESYLATE 1 MG TABLET PO SCH (22:00)
[2016-09-20] MEDS ORDERED: (PENDING PHARMACY ID) (Prazosin Hcl [Minipress] 1 MG) PO SCH (22:00)
[2016-09-20] MEDS: FLUTICASONE/SALMETEROL DISKUS 250-50 MCG/DOSE IH SCH (23:08)
[2016-09-20] MEDS: GABAPENTIN 300 MG CAPSULE PO SCH (23:08)
[2016-09-21] MEDS: GABAPENTIN 300 MG CAPSULE PO SCH (06:00)
[2016-09-21] MEDS ORDERED: METFORMIN HCL 500 MG TABLET PO SCH (08:00)
[2016-09-21] MEDS: FLUTICASONE/SALMETEROL DISKUS 250-50 MCG/DOSE IH SCH (09:23)
[2016-09-21] MEDS ORDERED: DULOXETINE HCL 30 MG CAPSULE.DR PO SCH (10:00)
[2016-09-21] MEDS ORDERED: LEVOTHYROXINE SODIUM 0.1 MG TABLET PO SCH (10:00)
[2016-09-21] MEDS ORDERED: MELOXICAM 15 MG TABLET PO SCH (10:00)
[2016-09-21] MEDS ORDERED: LANSOPRAZOLE 30 MG TAB.RAP.DR PO SCH (10:00)
[2016-09-21] MEDS ORDERED: (PENDING PHARMACY ID) (Levothyroxine Sodium [Synthroid] 175 MCG) PO SCH (10:00)
[2016-09-21] MEDS ORDERED: MULTIVITAMIN TABLET PO SCH (10:00)
[2016-09-21] MEDS ORDERED: LEVOTHYROXINE SODIUM 0.075 MG TABLET PO SCH (10:00)
--- NOTE | 2016-09-21 10:29 | PSYCHOLOGICAL NOTE ---
Psych Note - Psych Note Psych Note: Patient is a 45-year-old female with a history of depression, who presents to the emergency room complaining of depression with suicidal ideation and recent superficial cutting to her left wrist and right thigh, she reports that it was the recent anniversary of her mother's and her significant other told her yesterday that he would like a divorce, patient is tearful, she admits that she wants to kill herself, she denies medication noncompliance, reports that she was recently hospitalized for mental illness as well. Patient discussed she was just recently released from [facility] on September 04. She continued disclosed that she was admitted to [facility] because of suicidal ideation. Patient closed she has a plan of cutting. She continued to disclose that today she was looking at denies and started to cut herself. Patient observed readily near scratches on the patient's forearm. She states she was on the phone with her friend and they talked her into putting a knife down; mobile crisis showed up at that point. She states that she has been having a difficult time because it is the anniversary of her mother's in addition to her telling her yesterday that he does not love her anymore. She disclosed that she has been for 25 years. When asked what happened before the stated this, she stated "it is my fault." She continued disclosed that she had been cheating on her and that he had told her that she had been "cheating on him too long and it was a repairable." She was unable to count the number of times she has had extramarital affairs. Patient was asked if she loved her which patient replied "no." Patient disclosed she is upset because "I have never heard someone tell me that before. " Patient is alert and orientated to person place time and circumstance. Mood is dysphoric with tearful affect. Patient endorses suicidal ideation and demonstrates cutting as suicidal gesture. Patient denies homicidal ideation. Patient denies auditory and visual hallucinations; patient is not demonstrating any behavior congruent with responding to internal stimuli. Though process is organized and linear. Eye contact was well maintained. Intellectual abilities appear to be within average range. Attention and concentration are good. Insight, judgment and impulse control are poor. 296.33 (F33.2) major depressive disorder; repeat episode severe per history provided by patient P0 9.81 (F43.10) posttraumatic stress disorder per history provided by patient Impression\\plan: Patient is recommended to continue under IVC for mental health observation. Patient is very tearful. Patient will be re evaluated. Dr. baeza on the care and management of this patient; attending physician is in agreement with recommendations and disposition.
--- NOTE | 2016-09-21 10:36 | ER Document Report ---
ED Psych Disorder / Suicide - General Chief Complaint: Psych Problem Stated Complaint: IVC Time Seen by Provider: 09/20/16 10:56 Mode of Arrival: Ambulatory TRAVEL OUTSIDE OF THE [place] IN LAST 30 DAYS: No - HPI Patient complains to provider of: Suicidal ideation Situational problems related to: Spouse Suicide Attempt Method: Stabbing/Cutting - suicidal geature; observed red sctratches on forearm. Associated symptoms: Normal affect, Normal mood Notes: Patient is a 45-year-old female with a history of depression, who presents to the emergency room complaining of depression with suicidal ideation and recent superficial cutting to her left wrist and right thigh, she reports that it was the recent anniversary of her mother's and her significant other told her yesterday that he would like a divorce, patient is tearful, she admits that she wants to kill herself, she denies medication noncompliance, reports that she was recently hospitalized for mental illness as well. Clinician conducted checking with patient: Patient states she is feeling better. Mood is with congruent affect. Patient states she has a history of cutting. Patient does not live alone she currently lives with her daughter. She continued disclosed her daughter will be assisting her. Patient has a therapeutic appointment set up for September 25 at [facility]. 296.33 (F33.2) major depressive disorder; repeat episode severe per history provided by patient P0 9.81 (F43.10) posttraumatic stress disorder per history provided by patient Impression\plan: Patient is recommended for rescind of IVC and is considered psychiatrically clear for discharge. Patient does not meet criteria per [facility] GS 122C. Patient has previous schedule therapeutic appointment for August 30 through her home mental health provider [facility]. Patient is rec follow-up with that appointment. Dr. Lino was consulted on the care and management of this patient; attending physician is in agreement with recommendations and disposition. - Related Data Allergies/Adverse Reactions: morphine Allergy (Verified 09/16/16 13:38) Penicillins Allergy (Verified 09/16/16 13:38) Home Medications: Current Home Medications Albuterol Sulfate [Proair HFA] 2 puff IH Q4HP PRN 09/20/16 [History] Duloxetine HCl [Cymbalta] 60 mg PO DAILY 09/20/16 [History] Escitalopram Oxalate [Lexapro 10 mg Tablet] 10 mg PO DAILY@1900 09/20/16 [ History] Fluticasone/Salmeterol [Advair 250-50 Diskus 28 dose] 1 puff IH BID 09/20/16 [ History] Gabapentin [Neurontin] 600 mg PO Q8 09/20/16 [History] Hydroxyzine Pamoate [Vistaril 50 mg Capsule] 50 mg PO Q8HP PRN 09/20/16 [History ] Levothyroxine Sodium [Synthroid] 175 mcg PO DAILY 09/20/16 [History] Lurasidone HCl [Latuda] 40 mg PO DAILY@1900 09/20/16 [History] Meloxicam [Mobic 15 mg Tablet] 15 mg PO DAILY 09/20/16 [History] Metformin HCl [Glucophage] 500 mg PO BIDBS 09/20/16 [History] Montelukast Sodium [Singulair 10 mg Tablet] 10 mg PO QPM 09/20/16 [History] Multivitamin [Daily Multiple Vitamin] 1 tab PO DAILY 09/20/16 [History] Pantoprazole Sodium [Protonix] 40 mg PO DAILY 09/20/16 [History] Prazosin HCl [Minipress] 1 mg PO QHS 09/20/16 [History] Trazodone HCl [Desyrel] 100 mg PO HSP PRN 09/20/16 [History] Past Medical History - General Information source: Patient - Social History Smoking Status: Unknown if Ever Smoked Chew tobacco use (# tins/day): No Frequency of alcohol use: None Drug Abuse: None Family History: Reviewed & Not Pertinent Patient has suicidal ideation: Yes Patient has homicidal ideation: No Endocrine Medical History: Reports: Hx Diabetes Mellitus Type 2 Renal/ Medical History: Denies: Hx Peritoneal Dialysis Psychiatric Medical History: Reports: Hx Depression Past Surgical History: Reports: Hx Section - Immunizations Hx Diphtheria, Pertussis, Tetanus Vaccination: Yes Physical Exam - Vital signs Vitals: Temp Pulse Resp BP Pulse Ox 98.4 F 106 H 18 155/86 H 94 09/20/16 10:54 09/20/16 10:54 09/20/16 10:54 09/20/16 10:54 09/20/16 10:54 Course - Vital Signs Vital signs: Temp Pulse Resp BP Pulse Ox 98.5 F 77 18 130/70 H 98 09/21/16 06:51 09/21/16 06:51 09/21/16 06:51 09/21/16 06:51 09/21/16 06:51 - Laboratory Result Diagrams: 09/20/16 12:10 09/20/16 12:10 Laboratory results interpreted by me: 09/20/16 09/20/16 09/20/16 12:10 12:10 12:10 WBC 11.3 H RDW 14.9 H Glucose 223 H AST 47 H ALT 75 H Urine Protein 30 H Urine Glucose (UA) 150 H Salicylates < 1.0 L Acetaminophen < 10 L Discharge - Discharge Clinical Impression: Suicidal ideation, Self-injurious behavior, Posttraumatic stress disorder Major depressive disorder with current active episode Qualifiers: Major depression recurrence: recurrent Major depression episode severity: severe Psychotic features: without psychotic features Qualified Code(s): F33.2 - Major depressive disorder, recurrent severe without psychotic features Condition: Stable Disposition: HOME, SELF-CARE Additional Instructions: DEPRESSION: Your evaluation reveals that you have mental depression. While symptoms may be vague, they often include disturbance of sleep, fatigue, loss of appetite , and general loss of interest in life. While depression may be a side effect of drugs, or a reaction to a major change in your life, many cases have no known cause. If depression is acute, and related to a major loss in your life, you can expect it to clear completely with time. If you have been depressed a long time , are prone to repeated bouts of depression or low mood, or have been thinking of suicide, get help. Depression can be treated with anti-depressant medication and counselling. Long-term depression will often take a few weeks to clear, even with appropriate medication. Follow-up care is important. SUICIDAL IDEATION: Suicidal ideation is a common medical term for thoughts about suicide, which may be as detailed as a formulated plan, without the suicidal act itself. Although most people who undergo suicidal ideation do not commit suicide, some go on to make suicide attempts. The range of suicidal ideation varies greatly from fleeting to detailed planning, role playing, and unsuccessful attempts. While thoughts about suicide are common, most people do not carry out serious actions to commit suicide. Based upon your evaluation and discussion with you, we do not believe you are currently at risk to act upon your thoughts of suicide. You have agreed to return to the Emergency Department, at any time , if you feel inclined to act upon your suicidal thoughts. FOLLOW-UP CARE: Please follow-up with your outpatient mental health provider, [facility], at your prescheduled therapeutic appointment on Friday, August. If you experience worsening or a significant change in your symptoms, notify the physician immediately or return to the Emergency Department at any time for re- evaluation. Referrals: NADER CANO PA-C [Primary Care Provider] - Follow up as needed [facility] [Outside] - 09/25/16
--- NOTE | 2016-09-21 10:40 | ER Document Report ---
Doctor's Note Notes: 09/21/16 10:39 Resting comfortably, no complaints overnight, she feels safe to be discharged home today and has follow-up services early in place, she does not need any prescription medication at this point in time, she was advised to follow-up with ENT, or return if symptoms worsen, patient acknowledges understanding and agreement with this plan Discharge - Discharge Clinical Impression: Suicidal ideation, Self-injurious behavior, Posttraumatic stress disorder Major depressive disorder with current active episode Qualifiers: Major depression recurrence: recurrent Major depression episode severity: severe Psychotic features: without psychotic features Qualified Code(s): F33.2 - Major depressive disorder, recurrent severe without psychotic features Condition: Stable Disposition: HOME, SELF-CARE Additional Instructions: DEPRESSION: Your evaluation reveals that you have mental depression. While symptoms may be vague, they often include disturbance of sleep, fatigue, loss of appetite , and general loss of interest in life. While depression may be a side effect of drugs, or a reaction to a major change in your life, many cases have no known cause. If depression is acute, and related to a major loss in your life, you can expect it to clear completely with time. If you have been depressed a long time , are prone to repeated bouts of depression or low mood, or have been thinking of suicide, get help. Depression can be treated with anti-depressant medication and counselling. Long-term depression will often take a few weeks to clear, even with appropriate medication. Follow-up care is important. SUICIDAL IDEATION: Suicidal ideation is a common medical term for thoughts about suicide, which may be as detailed as a formulated plan, without the suicidal act itself. Although most people who undergo suicidal ideation do not commit suicide, some go on to make suicide attempts. The range of suicidal ideation varies greatly from fleeting to detailed planning, role playing, and unsuccessful attempts. While thoughts about suicide are common, most people do not carry out serious actions to commit suicide. Based upon your evaluation and discussion with you, we do not believe you are currently at risk to act upon your thoughts of suicide. You have agreed to return to the Emergency Department, at any time , if you feel inclined to act upon your suicidal thoughts. FOLLOW-UP CARE: Please follow-up with your outpatient mental health provider, [facility], at your prescheduled therapeutic appointment on Friday, August. If you experience worsening or a significant change in your symptoms, notify the physician immediately or return to the Emergency Department at any time for re- evaluation. Referrals: [facility] [Outside] - 09/25/16 NADER CANO PA-C [Primary Care Provider] - Follow up as needed
[2016-09-21 11:19] VITALS: BP 145/75
[2016-09-21] MEDS ORDERED: MONTELUKAST SODIUM 10 MG TABLET PO SCH (18:00)
[2016-09-21] MEDS ORDERED: ESCITALOPRAM OXALATE 10 MG TABLET PO SCH (19:00)
[2016-09-21] MEDS ORDERED: (PENDING PHARMACY ID) (Lurasidone Hcl [Latuda] 40 MG) PO SCH (19:00)
== END 2016-09-21 11:19 | disposition home or self-care (01) ==
LOC: ER 10:40
DX: R45.851 Suicidal ideations (principal); F33.2 Major depressive disorder, recurrent severe without psychotic features; F43.10 Post-traumatic stress disorder, unspecified; Z79.899 Other long term (current) drug therapy
CPT/HCPCS: 93005; 99285; 90471; 36415; 80307 ×4; 84703; 85025; 80053; 81001; 90715; 93010; J3490 ×4

== ENCOUNTER 2017-05-16 20:57 | Emergency (ER) | payer SELFPAY ==
[2017-05-16] MEDS ORDERED: PERMETHRIN 1% LOTION 59 ML TP ONE (23:24)
--- NOTE | 2017-05-16 23:25 | ER Document Report ---
ED General - General Chief Complaint: Suicidal Ideation Stated Complaint: SUCIDIAL IDEATIONS Time Seen by Provider: 05/16/17 22:46 Notes: Patient is a 46-year-old female with a past medical history of depression and anxiety currently off all medications who presents with suicidal ideation. Patient states that she has been intermittently suicidal over the last 2 months and it became worse in the past 2 days. She states that the major triggers for this suicidal ideation episode is that she lost medical insurance and has been off of all of her medications. Nothing improves her symptoms. She also notes a diffuse rash that is extremely pruritic. This is been present for at least one month and has progressively worsened since that time. She denies a history of similar symptoms in the past. She has been unable see a primary doctor or psychiatrist due to her lack of insurance. Patient states that she continues to be suicidal at this time and has knives at home which she could use to harm herself. She does however note that she has no significant plan to actually harm herself. She has not made any attempt to harm herself in a significant way in the past. She does not have access to firearms. TRAVEL OUTSIDE OF THE [place] IN LAST 30 DAYS: No - Related Data Allergies/Adverse Reactions: morphine Allergy (Verified 09/16/16 13:38) Penicillins Allergy (Verified 09/16/16 13:38) Past Medical History - General Information source: Patient - Social History Smoking Status: Never Smoker Frequency of alcohol use: None Drug Abuse: None Lives with: Spouse/Significant other Family History: Reviewed & Not Pertinent Endocrine Medical History: Reports: Hx Diabetes Mellitus Type 2 Renal/ Medical History: Denies: Hx Peritoneal Dialysis Psychiatric Medical History: Reports: Hx Depression Past Surgical History: Reports: Hx Section - Immunizations Hx Diphtheria, Pertussis, Tetanus Vaccination: Yes Review of Systems - Review of Systems Notes: Constitutional: Negative for fever. HENT: Negative for sore throat. Eyes: Negative for visual changes. Cardiovascular: Negative for chest pain. Respiratory: Negative for shortness of breath. Gastrointestinal: Negative for abdominal pain, vomiting or diarrhea. Genitourinary: Negative for dysuria. Musculoskeletal: Negative for back pain. Skin: Positive for rash. Neurological: Negative for headaches, weakness or numbness. 10 point ROS negative except as marked above and in HPI. Physical Exam - Vital signs Vitals: Temp Pulse Resp BP Pulse Ox 98.1 F 97 18 148/87 H 94 05/16/17 21:15 05/16/17 21:15 05/16/17 21:15 05/16/17 21:15 05/16/17 21:15 Interpretation: Normal Notes: PHYSICAL EXAMINATION: GENERAL: Well-appearing, well-nourished and in no acute distress. HEAD: Atraumatic, normocephalic. EYES: Pupils equal round and reactive to light, extraocular movements intact, sclera anicteric, conjunctiva are normal. ENT: nares patent, oropharynx clear without exudates. Moist mucous membranes. NECK: Normal range of motion, supple without lymphadenopathy LUNGS: Breath sounds clear to auscultation bilaterally and equal. No wheezes rales or rhonchi. HEART: Regular rate and rhythm without murmurs ABDOMEN: Soft, nontender, normoactive bowel sounds. No guarding, no rebound. No masses appreciated. EXTREMITIES: Normal range of motion, no pitting or edema. No cyanosis. NEUROLOGICAL: No focal neurological deficits. Moves all extremities spontaneously and on command. PSYCH: Normal mood, normal affect. SKIN: Warm, Dry, normal turgor, diffuse scaling, erythematous pruritic rash over the entirety of the patient's bilateral upper extremities, buttocks, low back, and chest wall Course - Re-evaluation Re-evalutation: 05/16/17 23:24 Patient presents with intermittent suicidal ideation without a specific plan that is been intermittently present for the past 2 months. She states that she is acutely suicidal today with a plan to cut herself with knives she has available in her home. Multiple stressors including loss of insurance and being off of all of her psychiatric medications as a possible trigger. Patient does also have scabies on exam. Will be treated with permethrin cream. She denies any additional medical concerns. Medical screening exam and labs otherwise unremarkable. She does not meet involuntary commitment criteria as her suicidal ideation has been waxing and waning over the last 2 months and she has not made any attempt to harm herself. She also admits that she does not have any true intention of actually harming herself. However she has agreed to remain in the emergency department spoke with psychiatry services in the morning. - Vital Signs Vital signs: Temp Pulse Resp BP Pulse Ox 98.1 F 97 18 148/87 H 94 05/16/17 21:15 05/16/17 21:15 05/16/17 21:15 05/16/17 21:15 05/16/17 21:15 - Laboratory Result Diagrams: 05/16/17 23:40 05/16/17 23:40 Laboratory results interpreted by me: 05/16/17 05/16/17 05/16/17 23:22 23:40 23:40 WBC 10.7 H RBC 5.37 H RDW 14.4 H Eosinophils % 6.3 H Absolute Eosinophils 0.7 H Glucose 159 H Urine Protein 30 H Urine Blood SMALL H Salicylates < 1.0 L Acetaminophen < 10 L Discharge - Discharge Clinical Impression: Scabies, Suicidal ideation Depression (emotion) Qualifiers: Depression Type: unspecified Qualified Code(s): F32.9 - Major depressive disorder, single episode, unspecified Condition: Fair Disposition: PSYCH HOSP/UNIT Referrals: NADER CANO PA-C [Primary Care Provider] - Follow up as needed
[2017-05-16 23:47] LABS: ABSOLUTE BASOPHILS # (AUTO) 0.1 10^3/uL (0.0-0.2); ABSOLUTE EOSINOPHILS # (AUTO) 0.7 10^3/uL (0.0-0.6); ABSOLUTE MONOCYTES (AUTO) 0.6 10^3/uL (0.1-1.4); ABSOLUTE NEUT (AUTO) 6.3 10^3/uL (1.7-8.2); EOSINOPHILS % (AUTO) 6.3 % (0-6); HEMATOCRIT 43.7 % (36.0-47.0); MEAN CORPUSCULAR HEMOGLOBIN 27.9 pg (27.0-33.4); MEAN CORPUSCULAR HGB CONC 34.3 g/dL (32.0-36.0); MEAN CORPUSCULAR VOLUME 81 fl (80-97); MONOCYTES % (AUTO) 5.6 % (3-13); PLATELET COUNT 216 10^3/uL (150-450); RED BLOOD COUNT 5.37 10^6/uL (3.72-5.28); RED CELL DISTRIBUTION WIDTH 14.4 % (11.5-14.0); SEGMENTED NEUTROPHILS % (AUTO) 59.1 % (42-78); TOTAL CELLS COUNTED % (AUTO) 100 %; WHITE BLOOD COUNT 10.7 10^3/uL (4.0-10.5)
[2017-05-16 23:48] LABS: APPEARANCE,URINE CLEAR; BILIRUBIN,URINE NEGATIVE (NEGATIVE); COLOR,URINE YELLOW; GLUCOSE, URINE NEGATIVE (NEGATIVE); KETONES,URINE NEGATIVE (NEGATIVE); LEUKOCYTE ESTERASE,URINE NEGATIVE (NEGATIVE); NITRITE,URINE NEGATIVE (NEGATIVE); PROTEIN,URINE 30 mg/dL (NEGATIVE); URINE SPECIFIC GRAVITY 1.017; UROBILINOGEN,URINE NEGATIVE mg/dL (<2.0)
[2017-05-17 00:08] LABS: ALANINE AMINOTRANSFERASE 46 U/L (9-52); ALBUMIN 4.1 g/dL (3.5-5.0); ALKALINE PHOSPHATASE 73 U/L (38-126); ANION GAP 10 (5-19); ASPARTATE AMINO TRANSFERASE 30 U/L (14-36); BILIRUBIN,DIRECT 0.2 mg/dL (0.0-0.4); BILIRUBIN,TOTAL 0.3 mg/dL (0.2-1.3); BLOOD UREA NITROGEN 15 mg/dL (7-20); CALCIUM 9.8 mg/dL (8.4-10.2); CARBON DIOXIDE 27 mmol/L (22-30); CHLORIDE 101 mmol/L (98-107); GLUCOSE 159 mg/dL (75-110); POTASSIUM 4.4 mmol/L (3.6-5.0); SODIUM 137.8 mmol/L (137-145); TOTAL PROTEIN 6.9 g/dL (6.3-8.2)
[2017-05-17 00:09] LABS: ACETAMINOPHEN < 10 ug/mL (10-30); ALCOHOL < 10 mg/dL (NONE DETECTED); SALICYLATE < 1.0 mg/dL (2.0-20.0)
[2017-05-17] MEDS ORDERED: PERMETHRIN 1% LOTION 59 ML ONE (00:57)
[2017-05-17 01:06] LABS: URINE AMPHETAMINES SCREEN NEGATIVE; URINE BARBITURATES SCREEN NEGATIVE; URINE BENZODIAZEPINES SCREEN NEGATIVE; URINE COCAINE SCREEN NEGATIVE; URINE MARIJUANA (THC) SCREEN NEGATIVE; URINE METHADONE SCREEN NEGATIVE; URINE PHENCYCLIDINE SCREEN NEGATIVE
--- NOTE | 2017-05-17 09:14 | PSYCHOLOGICAL NOTE ---
Psych Note - Psych Note Psych Note: Reason for Consult: Suicidal ideation Consent Permissions: Stephan, , Pt presents with [facility] psy[facility] hr representative with c/o suicidal ideations. Pt states that she has been off of all of her medications since February after she lost her medical insurance. Pt states that she has been thinking about suicide for the last month. Patient disclosed that she has been feeling suicidal for about a week and half now (patient had previously disclosed that she had been feeling suicidal for 1- 2 months). She states it started when she lost her medical insurance. She reports that she used to receive services through [facility]; her last appointment was in February. Patient disclosed that she still is having negative thoughts and that there are knives in her home. Patient lives with her and daughter. She reports that she was taking Latuda, Lexapro, prazosin, and trazodone. Patient states it has been about a month and a half since she took her medication. Patient denies knowledge of any care clinics in the community. She states she has no money to fill her prescriptions but needs her medications and "not just my psychiatric medications I need all of my medications." Clinician spoke with Emily, patient's . He disclosed that he does not have any concerns for the patient at this time. He knows that she has been having a difficult time since they have lost her insurance. He confirms he would like to be part of the patient's discharge plan to ensure the patient does not have any access to medications or weapons and follows through with her outpatient mental health services. He confirms currently they have no money for any medications clinic agrees to this plan of action would be to get set up with a community care clinic. He confirms that he has no concerns for the patient's well-being during that lapse of time of getting set up at that clinic. History obtained from previous visits: She disclosed that she has been for 25 years; however there was marital discord. When asked what happened, she stated "it is my fault." She continued disclosed that she had been cheating on her and that he had told her that she had been "cheating on him too long and it was a repairable." She was unable to count the number of times she has had extramarital affairs which has been going on her entire marriage. Patient was asked if she loved her which patient replied "no." Patient disclosed she is upset because "I have never heard someone tell me that before." Patient disclosed she has a history of cutting on both her arms and legs. She has a fear of losing everyone, meaning her children and and home. Patient is alert and orientated to person place time and circumstance. Mood is euthymic with congruent affect. Patient endorses suicidal ideation and demonstrates cutting as suicidal gesture. Patient denies homicidal ideation. Patient denies auditory and visual hallucinations; patient is not demonstrating any behavior congruent with responding to internal stimuli. Though process is organized and linear. Eye contact was well maintained. Intellectual abilities appear to be within average range. Attention and concentration are good. Insight, judgment and impulse control are historically poor. 296.33 (F33.2) major depressive disorder; repeat episode severe per history provided by patient 309.81 (F43.10) posttraumatic stress disorder per history provided by patient Cluster B Character Traits noted Impression\\plan: Patient is considered psychiatrically clear. Patient does not meet criteria per [place] GS 122C. Patient suffers from intermittent passive suicidal ideation that is chronic. Patient was seen on both 08/20/2016 and 2016 for suicidal ideation with plan of cutting. Patient does have a history of cutting as a maladaptive coping skill. She has not made any attempt to harm herself. Additionally, she reported to the attending physician upon arrival she does not have any true intention of actually harming herself. Patient significant other confirms that he has no concerns at this time and is willing to be part of patient's discharge plan to ensure she does not have any access to medications or weapons and follows through with her outpatient mental health services. Patient was [facility]. Patient also was provided local provider list. Patient is recommended to follow -up with [facility]. Dr. Lino was consulted on the care and management of this patient; attending physician is in agreement with recommendations and disposition.
--- NOTE | 2017-05-17 10:01 | ER Document Report ---
Doctor's Note Notes: 05/17/17 10:00 Rounds: Chart reviewed and patient interviewed. Vital signs are all normal. Lab studies are all essentially normal. Patient appears to be medically stable for transfer or discharge. Mental health has assessed the patient and feel she can be discharged for outpatient follow-up. Kayla Syed MD
--- NOTE | 2017-05-17 10:26 | EKG REPORT ---
SEVERITY:- ABNORMAL ECG - SINUS RHYTHM PROBABLE INFERIOR INFARCT, AGE INDETERMINATE : Confirmed by: Dagoberto Alaniz 17-May-2017 10:25:07
[2017-05-17 10:51] VITALS: BP 145/90
== END 2017-05-17 11:02 | disposition home or self-care (01) ==
LOC: ER 20:57
DX: R45.851 Suicidal ideations (principal); B86 Scabies; F33.2 Major depressive disorder, recurrent severe without psychotic features; F43.10 Post-traumatic stress disorder, unspecified; Z88.6 Allergy status to analgesic agent; Z88.0 Allergy status to penicillin; E11.9 Type 2 diabetes mellitus without complications
CPT/HCPCS: 36415; 80053; 80307; 81001; 84703; 85025; 93005; 93010; 99285; J3490

== ENCOUNTER 2017-09-19 14:14 | Emergency (ER) | payer SELFPAY ==
[2017-09-19] MEDS ORDERED: NORMAL SALINE 1000 ML 1,000 ML IV PRN (14:46)
--- NOTE | 2017-09-19 14:52 | ER Document Report ---
ED General - General Stated Complaint: BLOOD SUGAR PROBLEMS Time Seen by Provider: 09/19/17 14:39 Mode of Arrival: Ambulatory Information source: Patient Notes: This is a 46-year-old female with a history of hypertension, diabetes, hypothyroidism, asthma and GERD. She has been without medicines since last fall when she lost medical coverage. She presents with dizziness for 1 hour. She also states that she has had increased thirst and headache for a few days. She does report a rash for the past several months and is been treated in the past for scabies. TRAVEL OUTSIDE OF THE [place] IN LAST 30 DAYS: No - HPI Onset: Just prior to arrival Onset/Duration: Gradual Quality of pain: No pain Severity: None Pain Level: Denies Associated symptoms: denies: Chest pain, Fever, Shortness of breath Exacerbated by: Denies Relieved by: Denies Similar symptoms previously: Yes Recently seen / treated by doctor: Yes - Related Data Allergies/Adverse Reactions: morphine Allergy (Verified 09/16/16 13:38) Penicillins Allergy (Verified 09/16/16 13:38) Past Medical History - General Information source: Patient - Social History Smoking Status: Never Smoker Cigarette use (# per day): No Chew tobacco use (# tins/day): No Frequency of alcohol use: None Drug Abuse: None Lives with: Family Family History: Reviewed & Not Pertinent Patient has suicidal ideation: No Patient has homicidal ideation: No - Past Medical History Cardiac Medical History: Reports: Hx Hypertension Pulmonary Medical History: Reports: None Neurological Medical History: Reports: None Endocrine Medical History: Reports: Hx Diabetes Mellitus Type 2 Renal/ Medical History: Denies: Hx Peritoneal Dialysis Malignancy Medical History: Reports: None GI Medical History: Reports: None Musculoskeltal Medical History: Reports None Skin Medical History: Reports None Psychiatric Medical History: Reports: Hx Depression Traumatic Medical History: Reports: None Infectious Medical History: Reports: None Past Surgical History: Reports: Hx Section - Immunizations Hx Diphtheria, Pertussis, Tetanus Vaccination: Yes Review of Systems - Review of Systems Constitutional: denies: Chills, Fever EENT: No symptoms reported Cardiovascular: No symptoms reported Respiratory: No symptoms reported Gastrointestinal: See HPI Genitourinary: No symptoms reported Female Genitourinary: No symptoms reported Musculoskeletal: No symptoms reported Skin: See HPI Hematologic/Lymphatic: No symptoms reported Neurological/Psychological: No symptoms reported Physical Exam - Vital signs Vitals: Resp Pulse Ox 16 97 09/19/17 14:23 09/19/17 14:23 Notes: Physical exam: GENERAL: 46-year-old female, alert and oriented 3, no acute distress HEAD: Atraumatic, normocephalic. EYES: Pupils equal round and reactive to light, extraocular movements intact, sclera anicteric, conjunctiva are normal. ENT: TMs normal, nares patent, oropharynx clear without exudates. Moist mucous membranes. NECK: Normal range of motion, supple without obvious mass or JVD. LUNGS: Breath sounds clear to auscultation bilaterally and equal. No wheezes rales or rhonchi. HEART: Regular rate and rhythm without murmurs, rubs or gallops. ABDOMEN: Soft, normoactive bowel sounds. No tenderness to palpation. No guarding, no rebound. No masses appreciated. EXTREMITIES: Normal range of motion, no pitting or edema. No clubbing or cyanosis. NEUROLOGICAL: Cranial nerves II through XII grossly intact. Normal speech, moving all extremities. PSYCH: Normal mood, normal affect. SKIN: Patient has chronic rash over the extensor surfaces of the upper extremities and lower extremities. She does have some rash to the feet. She has rash on the trunk. There is sparing to the face. There is sparing to the axilla and to the webspaces of the fingers. Course - Vital Signs Vital signs: Temp Pulse Resp BP Pulse Ox 98.5 F 23 H 120/84 94 09/19/17 16:54 09/19/17 17:00 09/19/17 16:58 09/19/17 16:58 - Laboratory Result Diagrams: 09/19/17 14:30 09/19/17 14:30 Laboratory results interpreted by me: 09/19/17 09/19/17 09/19/17 14:24 14:30 14:30 RDW 15.3 H Glucose 321 H POC Glucose 313 H Urine Protein Urine Glucose (UA) 09/19/17 16:28 RDW Glucose POC Glucose Urine Protein 100 H Urine Glucose (UA) >=500 H Discharge - Discharge Clinical Impression: Diabetes Condition: Stable Disposition: HOME, SELF-CARE Instructions: Diabetes ([facility]) Additional Instructions: As we discussed, your electrolytes and kidney function tests and urine tests look good today. Your sugar was elevated at 300. I am prescribing metformin. Ultimately, you will need to follow-up with her primary care doctor as repeated trips to the emergency room will not solve the diabetes issue. I have left the number for the [facility]. It is important that you work on an ID so that they will see you. As far as the rash, you were given a diagnosis of scabies in the past and were treated with one treatment. This may not have been enough. He was given 2 treatments to take at home. Apply the first from the neck down over the the body, keep on the skin for 10 hours and then shower off. Repeat the treatment in 1-2 weeks. Prescriptions: Metformin HCl [Glucophage 500 mg Tablet] 500 mg PO BID #60 tablet Referrals: [facility] [Provider Group] - Follow up as needed
[2017-09-19 14:57] LABS: ABSOLUTE BASOPHILS # (AUTO) 0.1 10^3/uL (0.0-0.2); ABSOLUTE EOSINOPHILS # (AUTO) 0.5 10^3/uL (0.0-0.6); ABSOLUTE LYMPHOCYTES (AUTO) 1.7 10^3/uL (0.5-4.7); ABSOLUTE MONOCYTES (AUTO) 0.7 10^3/uL (0.1-1.4); ABSOLUTE NEUT (AUTO) 7.6 10^3/uL (1.7-8.2); BASOPHILS % (AUTO) 0.8 % (0-2); EOSINOPHILS % (AUTO) 4.4 % (0-6); HEMATOCRIT 42.1 % (36.0-47.0); HEMOGLOBIN 14.5 g/dL (12.0-15.5); LYMPHOCYTES % (AUTO) 16.2 % (13-45); MEAN CORPUSCULAR HEMOGLOBIN 29.9 pg (27.0-33.4); MEAN CORPUSCULAR HGB CONC 34.5 g/dL (32.0-36.0); MEAN CORPUSCULAR VOLUME 87 fl (80-97); MONOCYTES % (AUTO) 6.5 % (3-13); PLATELET COUNT 221 10^3/uL (150-450); RED BLOOD COUNT 4.85 10^6/uL (3.72-5.28); RED CELL DISTRIBUTION WIDTH 15.3 % (11.5-14.0); SEGMENTED NEUTROPHILS % (AUTO) 72.1 % (42-78); TOTAL CELLS COUNTED % (AUTO) 100 %; WHITE BLOOD COUNT 10.5 10^3/uL (4.0-10.5)
[2017-09-19] MEDS ORDERED: PERMETHRIN 1% LOTION 59 ML TP ONE ×2 (15:03→16:47)
[2017-09-19 15:06] LABS: ALANINE AMINOTRANSFERASE 32 U/L (9-52); ALBUMIN 3.7 g/dL (3.5-5.0); ALKALINE PHOSPHATASE 63 U/L (38-126); ANION GAP 9 (5-19); ASPARTATE AMINO TRANSFERASE 24 U/L (14-36); BILIRUBIN,DIRECT 0.3 mg/dL (0.0-0.4); BILIRUBIN,TOTAL 0.3 mg/dL (0.2-1.3); BLOOD UREA NITROGEN 14 mg/dL (7-20); CALCIUM 9.1 mg/dL (8.4-10.2); CARBON DIOXIDE 26 mmol/L (22-30); CHLORIDE 106 mmol/L (98-107); GLUCOSE 321 mg/dL (75-110); POTASSIUM 4.6 mmol/L (3.6-5.0); SODIUM 141.3 mmol/L (137-145); TOTAL PROTEIN 6.6 g/dL (6.3-8.2)
[2017-09-19 16:40] LABS: APPEARANCE,URINE SLIGHTLY-CLOUDY; BILIRUBIN,URINE NEGATIVE (NEGATIVE); COLOR,URINE YELLOW; GLUCOSE, URINE >=500 mg/dL (NEGATIVE); KETONES,URINE NEGATIVE (NEGATIVE); LEUKOCYTE ESTERASE,URINE NEGATIVE (NEGATIVE); NITRITE,URINE NEGATIVE (NEGATIVE); PROTEIN,URINE 100 mg/dL (NEGATIVE); URINE SPECIFIC GRAVITY 1.022; UROBILINOGEN,URINE NEGATIVE mg/dL (<2.0)
[2017-09-19 17:05] VITALS: BP 120/84
== END 2017-09-19 17:08 | disposition home or self-care (01) ==
LOC: ER 14:14
DX: E11.9 Type 2 diabetes mellitus without complications (principal); R42 Dizziness and giddiness; R51 Headache; I10 Essential (primary) hypertension; E03.9 Hypothyroidism, unspecified; Z88.6 Allergy status to analgesic agent; Z88.0 Allergy status to penicillin
CPT/HCPCS: 99285; 96360; 96361; 36415; 82962; 85025; 80053; 81001; J7030; J3490

== ENCOUNTER 2018-08-05 07:37 | Emergency (ER) | payer SELFPAY ==
--- NOTE | 2018-08-05 09:29 | ER Document Report ---
ED Medical Screen (RME) - General Chief Complaint: Near Syncope Stated Complaint: DIZZINESS Time Seen by Provider: 08/05/18 09:25 Primary Care Provider: NADER CANO PA-C [Primary Care Provider] - Follow up as needed Mode of Arrival: Medic Information source: Patient Notes: Patient presents emergency department with complaints of feeling dizzy nauseated this morning while sitting on the couch. She reports she did have a bowel movement movement about 20 minutes before this occurred but did not have to push. Patient reports she was just sitting on the couch became dizzy attempted to go the bathroom passed out her caught her. She then gag afterwards but did not vomit. Patient reports she is not having any symptoms at this time. She does have a history of diabetes but has not been taking medication for over a year because she cannot afford it she does not have insurance. She denies recent fever diarrhea. She reports she was feeling fine before this episode. Patient is tearful. Respiratory rate even and unlabored I have greeted and performed a rapid initial assessment of this patient. A comprehensive ED assessment and evaluation of the patient, analysis of test results and completion of the medical decision making process will be conducted by additional ED providers. TRAVEL OUTSIDE OF THE [place] IN LAST 30 DAYS: No - Related Data Allergies/Adverse Reactions: morphine Allergy (Verified 08/05/18 07:47) Penicillins Allergy (Verified 08/05/18 07:47) Past Medical History - Social History Chew tobacco use (# tins/day): No Frequency of alcohol use: None Drug Abuse: Marijuana - Past Medical History Cardiac Medical History: Reports: Hx Hypertension Endocrine Medical History: Reports: Hx Diabetes Mellitus Type 2 Renal/ Medical History: Denies: Hx Peritoneal Dialysis Musculoskeltal Medical History: Reports Hx Arthritis Psychiatric Medical History: Reports: Hx Depression Past Surgical History: Reports: Hx Section - Immunizations Hx Diphtheria, Pertussis, Tetanus Vaccination: Yes Physical Exam - Vital signs Vitals: Temp Pulse Resp BP Pulse Ox 98.2 F 88 17 152/88 H 95 08/05/18 07:53 08/05/18 07:53 08/05/18 07:53 08/05/18 07:53 08/05/18 07:53 Course - Vital Signs Vital signs: Temp Pulse Resp BP Pulse Ox 98.2 F 88 17 152/88 H 95 08/05/18 07:53 08/05/18 07:53 08/05/18 07:53 08/05/18 07:53 08/05/18 07:53 Doctor's Discharge - Discharge Referrals: NADER CANO PA-C [Primary Care Provider] - Follow up as needed
[2018-08-05 10:07] LABS: ABSOLUTE BASOPHILS # (AUTO) 0.1 10^3/uL (0.0-0.2); ABSOLUTE EOSINOPHILS # (AUTO) 0.2 10^3/uL (0.0-0.6); ABSOLUTE LYMPHOCYTES (AUTO) 1.9 10^3/uL (0.5-4.7); ABSOLUTE MONOCYTES (AUTO) 0.6 10^3/uL (0.1-1.4); ABSOLUTE NEUT (AUTO) 6.3 10^3/uL (1.7-8.2); BASOPHILS % (AUTO) 0.8 % (0-2); EOSINOPHILS % (AUTO) 2.3 % (0-6); HEMOGLOBIN 16.3 g/dL (12.0-15.5); LYMPHOCYTES % (AUTO) 20.5 % (13-45); MEAN CORPUSCULAR HEMOGLOBIN 29.4 pg (27.0-33.4); MEAN CORPUSCULAR VOLUME 86 fl (80-97); MONOCYTES % (AUTO) 6.3 % (3-13); PLATELET COUNT 236 10^3/uL (150-450); RED BLOOD COUNT 5.56 10^6/uL (3.72-5.28); RED CELL DISTRIBUTION WIDTH 13.9 % (11.5-14.0); SEGMENTED NEUTROPHILS % (AUTO) 70.1 % (42-78); TOTAL CELLS COUNTED % (AUTO) 100 %; WHITE BLOOD COUNT 9.1 10^3/uL (4.0-10.5)
[2018-08-05 10:22] LABS: APPEARANCE,URINE CLOUDY; BILIRUBIN,URINE NEGATIVE (NEGATIVE); COLOR,URINE YELLOW; GLUCOSE, URINE >=500 mg/dL (NEGATIVE); KETONES,URINE NEGATIVE (NEGATIVE); LEUKOCYTE ESTERASE,URINE TRACE (NEGATIVE); NITRITE,URINE NEGATIVE (NEGATIVE); PROTEIN,URINE 100 mg/dL (NEGATIVE); URINE SPECIFIC GRAVITY 1.027; UROBILINOGEN,URINE NEGATIVE mg/dL (<2.0)
[2018-08-05 10:31] LABS: ALANINE AMINOTRANSFERASE 40 U/L (9-52); ALBUMIN 3.9 g/dL (3.5-5.0); ALKALINE PHOSPHATASE 100 U/L (38-126); ANION GAP 8 (5-19); ASPARTATE AMINO TRANSFERASE 30 U/L (14-36); BILIRUBIN,DIRECT 0.4 mg/dL (0.0-0.4); BILIRUBIN,TOTAL 0.6 mg/dL (0.2-1.3); BLOOD UREA NITROGEN 15 mg/dL (7-20); CALCIUM 9.6 mg/dL (8.4-10.2); CARBON DIOXIDE 27 mmol/L (22-30); CHLORIDE 103 mmol/L (98-107); CREATINE KINASE 55 U/L (30-135); GLUCOSE 350 mg/dL (75-110); POTASSIUM 4.9 mmol/L (3.6-5.0)
[2018-08-05 10:43] LABS: CREATINE KINASE MB 0.45 ng/mL (<4.55); TROPONIN I 0.016 ng/mL
--- NOTE | 2018-08-05 12:40 | ER Document Report ---
ED General - General Chief Complaint: Near Syncope Stated Complaint: DIZZINESS Time Seen by Provider: 08/05/18 09:25 Primary Care Provider: NADER CANO PA-C [NO LOCAL MD] - Follow up as needed Mode of Arrival: Medic Notes: 47-year-old female with type 2 diabetes presents emergency department with complaints of feeling dizzy and nauseated this morning while sitting on the couch. She reports she did have a bowel movement movement about 20 minutes before this occurred but did not strain. She then attempted to go the bathroom, passed out, and her caught her. She subsequently dry heaves but did not vomit. Patient reports she is not having any symptoms at this time. Denies nevaeh rtness of breath or chest pain. she denies recent fever or diarrhea. She reports she was feeling fine before this episode. Denies any urinary symptoms, frequency or polyuria. TRAVEL OUTSIDE OF THE [place] IN LAST 30 DAYS: No - Related Data Allergies/Adverse Reactions: morphine Allergy (Verified 08/05/18 07:47) Penicillins Allergy (Verified 08/05/18 07:47) Past Medical History - General Information source: Patient - Social History Smoking Status: Current Every Day Smoker Chew tobacco use (# tins/day): No Frequency of alcohol use: None Drug Abuse: Marijuana Family History: Reviewed & Not Pertinent Patient has suicidal ideation: No Patient has homicidal ideation: No - Past Medical History Cardiac Medical History: Reports: Hx Hypertension Endocrine Medical History: Reports: Hx Diabetes Mellitus Type 2 Renal/ Medical History: Denies: Hx Peritoneal Dialysis Musculoskeletal Medical History: Reports Hx Arthritis Psychiatric Medical History: Reports: Hx Depression Past Surgical History: Reports: Hx Section - Immunizations Hx Diphtheria, Pertussis, Tetanus Vaccination: Yes Review of Systems - Review of Systems Constitutional: See HPI EENT: No symptoms reported Cardiovascular: See HPI Respiratory: See HPI Gastrointestinal: See HPI Genitourinary: See HPI Female Genitourinary: No symptoms reported Musculoskeletal: No symptoms reported Skin: No symptoms reported Hematologic/Lymphatic: No symptoms reported Neurological/Psychological: No symptoms reported Physical Exam - Vital signs Vitals: Temp Pulse Resp BP Pulse Ox 98.2 F 88 17 152/88 H 95 08/05/18 07:53 08/05/18 07:53 08/05/18 07:53 08/05/18 07:53 08/05/18 07:53 - Notes Notes: PHYSICAL EXAMINATION: Reviewed vital signs and charting by RN GENERAL: Alert, interacts well. No acute distress. HEAD: Normocephalic, atraumatic. EYES: Pupils equal and round. Extraocular movements intact. ENT: Oral mucosa moist, tongue midline. NECK: Full range of motion. Supple. Trachea midline. LUNGS: Clear to auscultation bilaterally, no wheezes, rales, or rhonchi. No respiratory distress. HEART: Regular rate and rhythm. No murmur ABDOMEN: soft, tenderness to deep palpation left side. Non-distended. Bowel sounds present. no McBurney's point tenderness, no Peoples sign. EXTREMITIES: Moves all 4 extremities spontaneously. No edema, No cyanosis. Normal distal neurovascular exam BACK: No CVAT NEUROLOGIC: Oriented and appropriate. Normal speech. No focal neuro deficits, normal neurologic exam. PSYCH: Normal affect, normal mood. SKIN: Warm, dry, normal turgor. No rashes or lesions noted. Course - Re-evaluation Re-evalutation: 08/05/18 12:40 Overall well-appearing. Orthostatic vital signs still pending. Blood glucose 300. Normal neuro exam. Will order CT head to ensure no lesions or pathology. 08/05/18 14:39 Orthostatic vital signs were negative. CT head negative for any intracranial pathology. Patient does report a "fuzzy" feeling at the top of her head but denies headache. She had a normal neurologic exam with no focal neuro deficits. Blood sugar was 300. I am going to give her a prescription for metformin and I educated her on its and the potential side effects. At this time she had a negative workup with a negative troponin so she is stable for discharge home. I told her to establish care with a primary care doctor and I will give [facility]. - Vital Signs Vital signs: Temp Pulse Resp BP Pulse Ox 98.2 F 87 17 150/88 H 97 08/05/18 07:53 08/05/18 12:56 08/05/18 13:02 08/05/18 13:02 08/05/18 13:02 - Laboratory Result Diagrams: 08/05/18 09:40 08/05/18 09:40 Laboratory results interpreted by me: 08/05/18 08/05/18 08/05/18 09:40 09:40 09:40 RBC 5.56 H Hgb 16.3 H Hct 48.0 H Glucose 350 H Urine Protein 100 H Urine Glucose (UA) >=500 H Urine Blood SMALL H Ur Leukocyte Esterase TRACE H Discharge - Discharge Clinical Impression: Near syncope Condition: Good Disposition: HOME, SELF-CARE Instructions: Near Syncopal Episode ([facility]) Additional Instructions: You were seen today after an episode of passing out. Your EKG here is normal. At this time, we do not feel that your episode of passing out was from any life- threatening cause. Please drink plenty of fluids over the next several days. Return to emergency department if you have any further episodes of syncope, headache, weakness, numbness, chest pain, or shortness of breath. Please follow up closely with your primary care physician. Prescriptions: Metformin HCl [Glucophage 500 mg Tablet] 500 mg PO BID #60 tablet Referrals: NADER CANO PA-C [NO LOCAL MD] - Follow up as needed
--- NOTE | 2018-08-05 13:35 | RADIOLOGY REPORT (SQ) ---
EXAM DESCRIPTION: CT HEAD WITHOUT COMPLETED DATE/TIME: 08/05/2018 1:26 pm REASON FOR STUDY: near syncope COMPARISON: None. TECHNIQUE: Axial images acquired through the brain without intravenous contrast. Images reviewed wi th bone, brain and subdural windows. Additional sagittal and coronal reconstructions were generated. Images stored on PACS. All CT scanners at this facility use dose modulation, iterative reconstruction, and/or weight based d osing when appropriate to reduce radiation dose to as low as reasonably achievable (ALARA). [facility]: Dose Right [facility]: CareDose [facility]: Dose Right [facility]: Teradose 4D [facility]: Fourandhalf RADIATION DOSE: CT Rad equipment meets quality standard of care and radiation dose reduction techniq ues were employed. CTDIvol: 53.2 mGy. DLP: 1070 mGy-cm. mGy. LIMITATIONS: None. FINDINGS: VENTRICLES: Normal size and contour. CEREBRUM: No masses. No hemorrhage. No midline shift. No evidence for acute infarction. Normal gra y/white matter differentiation. No areas of low density in the white matter. CEREBELLUM: No masses. No hemorrhage. No alteration of density. No evidence for acute infarction. EXTRAAXIAL SPACES: No fluid collections. No masses. ORBITS AND GLOBE: No intra- or extraconal masses. Normal contour of globe without masses. CALVARIUM: No fracture. PARANASAL SINUSES: No fluid or mucosal thickening. SOFT TISSUES: No mass or hematoma. OTHER: No other significant finding. IMPRESSION: No acute intracranial pathology. EVIDENCE OF ACUTE STROKE: NO. COMMENT: Quality ID # [id number]: Final reports with documentation of one or more dose reduction techniques (e.g., Automated exposure control, adjustment of the mA and/or kV according to patient size, use of iterative reconstruction technique) TECHNICAL DOCUMENTATION: JOB ID: [id number] [employer] [facility] [employer]- All Rights Reserved Reading location - IP/workstation name: [email or web address]
[2018-08-05 16:12] VITALS: BP 123/82
--- NOTE | 2018-08-06 11:05 | EKG REPORT ---
SEVERITY:- BORDERLINE ECG - SINUS RHYTHM PROBABLE LEFT ATRIAL ABNORMALITY BORDERLINE T ABNORMALITIES, INFERIOR LEADS : Confirmed by: Dagoberto Alaniz 06-Aug-2018 11:04:40
== END 2018-08-05 16:30 | disposition home or self-care (01) ==
LOC: ER 07:37
DX: R55 Syncope and collapse (principal); R11.0 Nausea; E11.9 Type 2 diabetes mellitus without complications; I10 Essential (primary) hypertension; F17.200 Nicotine dependence, unspecified, uncomplicated; Z88.5 Allergy status to narcotic agent; Z88.0 Allergy status to penicillin
CPT/HCPCS: 36415; 70450; 80053; 81001; 81025; 82550; 82553; 84484; 85025; 93005; 93010; 99284